=== PATIENT | male | born 2000 | race Caucasian/White ===

== ENCOUNTER 2020-06-05 16:41 | Inpatient (IN) ==
[2020-06-05 17:09] LABS: Basophils % 0.3 %; Eosinophils # 0.2 K/mcL (0.0-0.6); Eosinophils % 1.8 %; Hemoglobin 14.7 g/dL (12.9-16.9); Immature Granulocytes % 0.4 % (0-4); Lymphocytes # 3.2 K/mcL (0.6-4.6); Lymphocytes % 32.1 %; Mean Corpuscular HGB Conc 34.2 g/dL (31.6-35.5); Mean Corpuscular Hemoglobin 31.3 pg (28.0-33.3); Mean Corpuscular Volume 91.5 fL (83.0-100.0); Mean Platelet Volume 10.2 fL (9.4-12.4); Monocytes # 0.8 K/mcL (0.0-1.3); Monocytes % 8.2 %; Neutrophils # 5.7 K/mcL (1.6-8.9); Platelet Count 309 K/mcL (140-400); Red Cell Distribution Width 12.6 % (11.5-14.5); Segmented Neutrophils % 57.2 %; White Blood Count 9.9 K/mcL (4.3-11.1)
[2020-06-05 17:32] LABS: Bilirubin,Urine Negative (Negative); Blood,Urine Negative (Negative); Clarity,Urine Clear (Clear); Color,Urine Light-Yellow (Yellow); Glucose,Urine (UA) Normal (Normal); Ketones,Urine Negative (Negative); Leukocyte Esterase,Urine Negative (Negative); Nitrite,Urine Negative (Negative); Protein,Urine Negative (Neg-Trace); Specific Gravity,Urine 1.013 (1.010-1.025); Urobilinogen,Urine Normal (Normal)
[2020-06-05 17:37] LABS: Acetaminophen < 10 mcg/mL (10-20); BUN/Creatinine Ratio 14 (6-26); Blood Urea Nitrogen 12 mg/dL (6-20); Calcium 9.8 mg/dL (8.6-10.3); Carbon Dioxide 28 mEq/L (23-29); Chloride 104 mEq/L (98-107); Ethanol < 10 mg/dL (Less than 10); Glucose 102 mg/dL (70-105); Osmolality,Calculated 290 (280-300); Potassium 3.4 mEq/L (3.5-5.1); Salicylate < 2.5 mg/dL (15.0-30.0); Sodium 140 mEq/L (136-145); eGFR For African Americans > 60 (> 60); eGFR For Non-African Americans > 60 (> 60)
[2020-06-05 17:46] LABS: Amphetamine Screen,Urine Positive ng/mL (Cutoff=1000); Barbiturate Screen,Urine Negative ng/mL (Cutoff=200); Benzodiazepines Screen,Urine Negative ng/mL (Cutoff=200); Cannabinoid Screen,Urine Positive ng/mL (Cutoff = 50); Cocaine Screen,Urine Negative ng/mL (Cutoff= 300); Opiate Screen,Urine Negative ng/mL (Cutoff=300); Phencyclidine Screen,Urine Negative ng/mL (Cutoff=25)
[2020-06-05] MEDS ORDERED: Acetaminophen 325 MG TABLET PO PRN (22:58)
[2020-06-05] MEDS ORDERED: Haloperidol Lactate 5 MG/ML VIAL IM PRN (22:58)
[2020-06-05] MEDS ORDERED: MOM Conc 10 ML UD.LIQ PO PRN (22:58)
[2020-06-05] MEDS ORDERED: *HR* LORazepam 2 MG/ML VIAL IM PRN (22:58)
[2020-06-05] MEDS ORDERED: haloperidoL 5 MG TABLET PO PRN (22:58)
[2020-06-05] MEDS ORDERED: *HR* LORazepam 1 MG TABLET PO PRN (22:58)
[2020-06-05] MEDS ORDERED: Mag Hydrox/Al Hydrox/Simeth 30 ML UDC PO PRN (22:58)
[2020-06-06] MEDS: Nicotine 14 MG PATCH.TD24 TD SCH (12:33)
[2020-06-07] MEDS: Nicotine 14 MG PATCH.TD24 TD SCH (09:25)
[2020-06-07] MEDS: QUEtiapine Fumarate 25 MG TABLET PO PRN (20:01)
[2020-06-07] MEDS: hydrOXYzine pamoate 25 MG CAPSULE PO PRN (20:01)
[2020-06-08] MEDS: Nicotine 2 MG GUM BC PRN (18:25)
[2020-06-08] MEDS: hydrOXYzine pamoate 25 MG CAPSULE PO PRN (20:20)
[2020-06-08] MEDS: QUEtiapine Fumarate 25 MG TABLET PO PRN (20:20)
[2020-06-09] MEDS: hydrOXYzine pamoate 25 MG CAPSULE PO PRN (21:14)
[2020-06-09] MEDS: QUEtiapine Fumarate 25 MG TABLET PO PRN (21:14)
[2020-06-10] MEDS: Nicotine 2 MG GUM BC PRN (19:13)
[2020-06-10] MEDS: QUEtiapine Fumarate 25 MG TABLET PO PRN (20:07)
[2020-06-10] MEDS: hydrOXYzine pamoate 25 MG CAPSULE PO PRN (20:07)
[2020-06-11 09:20] VITALS: BP 135/84
== END 2020-06-11 11:50 | disposition home or self-care (01) | DRG 751 ==
LOC: EMEROOARM 16:41 → 1ANU 22:43
PROVIDERS: ADMIT Psychiatry & Neurology Psychiatry; ATTEND Psychiatry & Neurology Psychiatry